=== PATIENT | male | born 1970 | race Caucasian/White ===

== ENCOUNTER 2019-06-02 18:41 | Emergency (ER) | payer MEDICAID ==
[~2019-06-02] VITALS: Ht 152.4 cm; Wt 92.5 kg
[2019-06-02 19:01] VITALS: BP 139/78
--- NOTE | 2019-06-02 19:15 | NUR ---
CAME IN WITH C/O LEFT LEG RADIATING TO HIS BUTTOCK, GOING TO TO HIS FOOT FOR A MONTH, NO TRAUMA NOR INJURY
--- NOTE | 2019-06-02 19:20 | NUR ---
SEEN AND EXAMINED BY DERECK WITH ORDERS AND CARRIED OUT.
[2019-06-02] MEDS ORDERED: HYDROcodone/APAP 5/325 MG 1 TAB TAB PO ONE (19:30)
[2019-06-02] MEDS ORDERED: KETOROLAC 30 MG/ML VIAL IM ONE (19:30)
--- NOTE | 2019-06-02 19:35 | NUR ---
MEDICATED PER [facility] ORDER, PATIENT TOLERATED WELL
[2019-06-02 20:07] VITALS: BP 128/79
--- NOTE | 2019-06-02 20:07 | NUR ---
Patient discharged with v/s stable. Written and verbal after care instructions given and explained. Patient alert, oriented and verbalized understanding of instructions. Ambulatory with steady gait. All questions addressed prior to discharge. ID band removed. Patient advised to follow up with PMD. Rx of NORCO, NAPROSYN 500MG given. Patient educated on indication of medication including possible reaction and side effects. Opportunity to ask questions provided and answered.
== END 2019-06-02 20:07 | disposition home or self-care (01) ==
LOC: MED 18:41
DX: M54.42 Lumbago with sciatica, left side (principal)
CPT/HCPCS: 96372; 99283; J1885